=== PATIENT | male | born 1965 | race Caucasian/White ===

== ENCOUNTER 2020-09-16 16:20 | Inpatient (IN) | payer OTHER ==
[~2020-09-16] VITALS: Ht 182.9 cm; Wt 139.4 kg
[2020-09-16] MEDS ORDERED: AZITHROMYCIN 500MG/ 250ML 250 ML IV ONE (18:00)
[2020-09-16] MEDS ORDERED: DexAMETHasone SOD PHOS 10MG/1ML VIAL INJ IV ONE (18:00)
[2020-09-16 19:22] LABS: Basophils # (auto) 0 10 ^3/uL (0-0.2); Basophils % (auto) 0.1 % (0.0-2.0); Eosinophils # (auto) 0 10 ^3/uL (0-0.8); Hemoglobin 15.8 g/dL (13.5-17.5); Lymphocytes # (auto) 0.7 10 ^3/uL (0.4-5.4); Lymphocytes % (auto) 14.3 % (10.0-50.0); Mean Corpuscular Hemoglobin 33.4 pg (28.0-32.0); Mean Corpuscular Hgb Conc. 35.1 g/dL (32.0-36.0); Mean Corpuscular Volume 95.2 fL (80.0-100.0); Monocytes # (auto) 0.7 10 ^3/uL (0-1.3); Monocytes % (auto) 14.4 % (0.0-12.0); Neutrophils # (auto) 3.5 10 ^3/uL (1.6-8.6); Neutrophils % (auto) 71.2 % (37.0-80.0); Nucleated Red Blood Cells % 0.1 %; Red Blood Cells 4.73 10^6/uL (4.5-5.90); Red Cell Distribution Width 13.3 % (11.8-14.3)
[2020-09-16 19:35] LABS: INR 1.13 (0.9-1.15); Partial Thromboplastin Time 32.5 sec (23.0-31.2)
[2020-09-16 19:45] LABS: Chloride 102 mmol/L (98-107); Potassium 4.1 mmol/L (3.5-5.1); Sodium 133 mmol/L (136-145)
[2020-09-16 19:50] LABS: Alanine Aminotransferase 32 U/L (16-61); Albumin 2.9 g/dL (3.4-5.0); Alkaline Phosphatase 60 U/L (45-117); Anion Gap 9 (5-15); Aspartate Aminotransferase 62 U/L (15-37); BUN/Creatinine Ratio 17.9; Bilirubin, Total 0.8 mg/dL (0.2-1.0); Blood Urea Nitrogen 12 mg/dL (7-18); Calcium 7.9 mg/dL (8.5-10.1); Carbon Dioxide 22 mmol/L (21-32); GFR African American 159 mL/min; GFR Non-African American 131 mL/min; Glucose 135 mg/dL (74-106); Magnesium 1.9 mg/dL (1.6-2.6); Total Protein 7.4 g/dL (6.4-8.2)
[2020-09-16] MEDS ORDERED: ALBUTEROL SULF HFA 90MCG INH 200DOSE IN SCH (22:00)
[2020-09-16] MEDS: ASCORBIC ACID 500 MG TAB PO SCH (23:08)
[2020-09-16] MEDS: DexAMETHasone SOD PHOS 10MG/1ML VIAL INJ IV SCH (23:08)
[2020-09-17] MEDS ORDERED: ALBUTEROL SULF HFA 90MCG INH 200DOSE IN PRN (06:15)
[2020-09-17] MEDS: DexAMETHasone SOD PHOS 10MG/1ML VIAL INJ IV SCH ×2 (11:02→23:02)
[2020-09-17] MEDS: ASCORBIC ACID 500 MG TAB PO SCH ×2 (11:03→23:02)
[2020-09-17] MEDS: ZINC SULFATE 220mg CAP or TAB PO SCH (11:03)
[2020-09-17] MEDS: AZITHROMYCIN 250 MG TAB PO SCH (11:03)
[2020-09-17] MEDS: CHOLECALCIFEROL (VITD3) 2,000 UNIT CAP/TAB PO SCH (11:03)
[2020-09-17] MEDS: cefTRIAXone 1GM/50ML D5W 50 ML IV SCH (11:14)
[2020-09-17] MEDS: ACETAMINOPHEN 325 MG TAB PO PRN (13:52)
[2020-09-17 14:00] LABS: Urine Bacteria NONE SEEN /hpf (None Seen); Urine Blood Negative /uL (Negative); Urine Hyaline Cast FEW /lpf (0 - 2); Urine Mucus FEW (None Seen); Urine Specific Gravity 1.031 (1.001-1.035); Urine WBC <1 /hpf (0 - 3)
[2020-09-18] VITALS: BP 137/72
[2020-09-18 00:44] VITALS: BP 137/72
[2020-09-18 08:00] VITALS: BP 131/83
[2020-09-18] MEDS: ENOXAPARIN SOD 40 MG/0.4 ML SYRINGE SC SCH (10:00)
[2020-09-18] MEDS: CHOLECALCIFEROL (VITD3) 2,000 UNIT CAP/TAB PO SCH (10:00)
[2020-09-18] MEDS: DexAMETHasone SOD PHOS 10MG/1ML VIAL INJ IV SCH ×2 (10:06→21:21)
[2020-09-18] MEDS: ZINC SULFATE 220mg CAP or TAB PO SCH (10:07)
[2020-09-18] MEDS: cefTRIAXone 1GM/50ML D5W 50 ML IV SCH (10:07)
[2020-09-18] MEDS: ASCORBIC ACID 500 MG TAB PO SCH ×2 (10:08→21:22)
[2020-09-18] MEDS: AZITHROMYCIN 250 MG TAB PO SCH (10:09)
[2020-09-18 16:00] VITALS: BP 130/78
[2020-09-18] MEDS: PROMETHAZINE W/CODEINE 5 ML ORAL SYRUP PO PRN (21:22)
[2020-09-18] MEDS: ACETAMINOPHEN 325 MG TAB PO PRN (21:23)
[2020-09-19] VITALS: BP_SYST 122; BP_SYST 126; BP_DIAS 69; BP_DIAS 80
[2020-09-19 08:00] VITALS: BP 118/73
[2020-09-19] MEDS: PROMETHAZINE W/CODEINE 5 ML ORAL SYRUP PO PRN ×2 (09:54→20:43)
[2020-09-19] MEDS: DexAMETHasone SOD PHOS 10MG/1ML VIAL INJ IV SCH ×2 (10:15→20:42)
[2020-09-19] MEDS: cefTRIAXone 1GM/50ML D5W 50 ML IV SCH (10:15)
[2020-09-19] MEDS: ASCORBIC ACID 500 MG TAB PO SCH ×2 (10:16→20:43)
[2020-09-19] MEDS: ENOXAPARIN SOD 40 MG/0.4 ML SYRINGE SC SCH (10:16)
[2020-09-19] MEDS: ZINC SULFATE 220mg CAP or TAB PO SCH (10:16)
[2020-09-19] MEDS: CHOLECALCIFEROL (VITD3) 2,000 UNIT CAP/TAB PO SCH (10:16)
[2020-09-19] MEDS: AZITHROMYCIN 250 MG TAB PO SCH (10:16)
[2020-09-19 16:00] VITALS: BP 123/73
[2020-09-19] MEDS: ACETAMINOPHEN 325 MG TAB PO PRN (20:44)
[2020-09-20] VITALS: BP 122/69
[2020-09-20 08:00] VITALS: BP 142/83
[2020-09-20] MEDS: DexAMETHasone SOD PHOS 10MG/1ML VIAL INJ IV SCH ×2 (09:52→21:53)
[2020-09-20] MEDS: cefTRIAXone 1GM/50ML D5W 50 ML IV SCH (09:52)
[2020-09-20] MEDS: CHOLECALCIFEROL (VITD3) 2,000 UNIT CAP/TAB PO SCH (09:53)
[2020-09-20] MEDS: ASCORBIC ACID 500 MG TAB PO SCH ×2 (09:53→21:53)
[2020-09-20] MEDS: ZINC SULFATE 220mg CAP or TAB PO SCH (09:53)
[2020-09-20] MEDS: ENOXAPARIN SOD 40 MG/0.4 ML SYRINGE SC SCH (09:54)
[2020-09-20] MEDS: PROMETHAZINE W/CODEINE 5 ML ORAL SYRUP PO PRN ×2 (09:54→15:07)
[2020-09-20] MEDS: AZITHROMYCIN 250 MG TAB PO SCH (09:54)
[2020-09-20] MEDS ORDERED: ZOLPIDEM TARTRATE 5 MG TAB PO PRN (12:30)
[2020-09-20 16:00] VITALS: BP 162/96
[2020-09-20 23:43] VITALS: BP 137/79
[2020-09-21 08:29] VITALS: BP 134/79
[2020-09-21] MEDS: DexAMETHasone SOD PHOS 10MG/1ML VIAL INJ IV SCH (13:25)
[2020-09-21] MEDS: AZITHROMYCIN 250 MG TAB PO SCH (13:26)
[2020-09-21] MEDS: ZINC SULFATE 220mg CAP or TAB PO SCH (13:26)
[2020-09-21] MEDS: cefTRIAXone 1GM/50ML D5W 50 ML IV SCH (13:26)
[2020-09-21] MEDS: ASCORBIC ACID 500 MG TAB PO SCH ×2 (13:26→22:38)
[2020-09-21] MEDS: CHOLECALCIFEROL (VITD3) 2,000 UNIT CAP/TAB PO SCH (13:27)
[2020-09-21] MEDS: ENOXAPARIN SOD 40 MG/0.4 ML SYRINGE SC SCH (13:28)
[2020-09-21] MEDS: PROMETHAZINE W/CODEINE 5 ML ORAL SYRUP PO PRN (13:49)
[2020-09-21 16:00] VITALS: BP 132/83
[2020-09-21] MEDS: DexAMETHasone SOD PHOS 4 MG/1ML SDV INJ IV SCH (22:38)
[2020-09-22 00:21] VITALS: BP 130/77
[2020-09-22 08:00] VITALS: BP_SYST 125; BP_SYST 144; BP_DIAS 77; BP_DIAS 78
[2020-09-22] MEDS: DexAMETHasone SOD PHOS 4 MG/1ML SDV INJ IV SCH ×2 (09:25→22:10)
[2020-09-22] MEDS: ZINC SULFATE 220mg CAP or TAB PO SCH (09:26)
[2020-09-22] MEDS: cefTRIAXone 1GM/50ML D5W 50 ML IV SCH (09:26)
[2020-09-22] MEDS: ASCORBIC ACID 500 MG TAB PO SCH ×2 (09:27→22:10)
[2020-09-22] MEDS: AZITHROMYCIN 250 MG TAB PO SCH (09:27)
[2020-09-22] MEDS: CHOLECALCIFEROL (VITD3) 2,000 UNIT CAP/TAB PO SCH (09:27)
[2020-09-22] MEDS: ENOXAPARIN SOD 40 MG/0.4 ML SYRINGE SC SCH (09:27)
[2020-09-22] MEDS: PROMETHAZINE W/CODEINE 5 ML ORAL SYRUP PO PRN (09:28)
[2020-09-22] MEDS: traMADol HCL 50 MG TAB PO PRN (12:31)
[2020-09-22 16:00] VITALS: BP 139/86
[2020-09-22 23:55] VITALS: BP 133/86
[2020-09-23 08:00] VITALS: BP 126/81
[2020-09-23] MEDS: AZITHROMYCIN 250 MG TAB PO SCH (09:13)
[2020-09-23] MEDS: ZINC SULFATE 220mg CAP or TAB PO SCH (09:13)
[2020-09-23] MEDS: CHOLECALCIFEROL (VITD3) 2,000 UNIT CAP/TAB PO SCH (09:13)
[2020-09-23] MEDS: DexAMETHasone SOD PHOS 4 MG/1ML SDV INJ IV SCH ×2 (09:13→22:42)
[2020-09-23] MEDS: cefTRIAXone 1GM/50ML D5W 50 ML IV SCH (09:13)
[2020-09-23] MEDS: traMADol HCL 50 MG TAB PO PRN (09:14)
[2020-09-23] MEDS: ENOXAPARIN SOD 40 MG/0.4 ML SYRINGE SC SCH (09:14)
[2020-09-23] MEDS: ASCORBIC ACID 500 MG TAB PO SCH ×2 (09:14→22:42)
[2020-09-23] MEDS: PROMETHAZINE W/CODEINE 5 ML ORAL SYRUP PO PRN (11:50)
[2020-09-23] MEDS ORDERED: REMDESIVIR PER PHARMACY 0 ML IV SCH (13:15)
[2020-09-23 16:00] VITALS: BP 120/67
[2020-09-23 16:36] LABS: Albumin 2.6 g/dL (3.4-5.0); Calcium 8.6 mg/dL (8.5-10.1); Magnesium 2.4 mg/dL (1.6-2.6); Potassium 4.7 mmol/L (3.5-5.1)
[2020-09-23 16:40] LABS: BUN/Creatinine Ratio 31.5; Bilirubin, Total 0.7 mg/dL (0.2-1.0); Phosphorus 3.1 mg/dL (2.5-4.90); Total Protein 7.1 g/dL (6.4-8.2)
[2020-09-23 16:44] LABS: CRP High Sensitivity 0.12 mg/dL (< 0.3)
[2020-09-23] MEDS: guaiFENesin-CODEINE Liq 5 ML UD GT PRN (17:00)
[2020-09-23] MEDS ORDERED: REMDESIVIR 200 MG in NS 210ml LOADING DOSE ADULT IV ONE (18:00)
[2020-09-23] MEDS ORDERED: REMDESIVIR 100mg 100 MG in SODIUM CHL 0.9% 230 ML IV ONE (20:30)
[2020-09-23] MEDS: BUDESONIDE (INHALATION) 180 MCG IH IN SCH (21:14)
[2020-09-24] VITALS: BP 141/90
[2020-09-24 08:00] VITALS: BP 133/81
[2020-09-24] MEDS: BUDESONIDE (INHALATION) 180 MCG IH IN SCH ×2 (08:07→20:18)
[2020-09-24 08:48] LABS: Basophils # (auto) 0 10 ^3/uL (0-0.2); Basophils % (auto) 0.2 % (0.0-2.0); Eosinophils # (auto) 0 10 ^3/uL (0-0.8); Hematocrit 47.4 % (41.0-53.0); Hemoglobin 16.1 g/dL (13.5-17.5); Lymphocytes # (auto) 0.7 10 ^3/uL (0.4-5.4); Lymphocytes % (auto) 6.2 % (10.0-50.0); Mean Corpuscular Hemoglobin 32.1 pg (28.0-32.0); Mean Corpuscular Volume 94.2 fL (80.0-100.0); Monocytes # (auto) 0.9 10 ^3/uL (0-1.3); Monocytes % (auto) 7.7 % (0.0-12.0); Neutrophils # (auto) 9.6 10 ^3/uL (1.6-8.6); Neutrophils % (auto) 85.9 % (37.0-80.0); Nucleated Red Blood Cells % 0.1 %; Red Blood Cells 5.02 10^6/uL (4.5-5.90); Red Cell Distribution Width 13.1 % (11.8-14.3); White Blood Cell 11.2 10^3/uL (4.4-10.8)
[2020-09-24] MEDS: traMADol HCL 50 MG TAB PO PRN ×2 (09:59→22:45)
[2020-09-24] MEDS: cefTRIAXone 1GM/50ML D5W 50 ML IV SCH (09:59)
[2020-09-24] MEDS: DexAMETHasone SOD PHOS 4 MG/1ML SDV INJ IV SCH ×2 (09:59→22:44)
[2020-09-24] MEDS: AZITHROMYCIN 250 MG TAB PO SCH (09:59)
[2020-09-24] MEDS: CHOLECALCIFEROL (VITD3) 2,000 UNIT CAP/TAB PO SCH (10:00)
[2020-09-24] MEDS: ENOXAPARIN SOD 40 MG/0.4 ML SYRINGE SC SCH (10:00)
[2020-09-24] MEDS: ZINC SULFATE 220mg CAP or TAB PO SCH (10:00)
[2020-09-24] MEDS: ASCORBIC ACID 500 MG TAB PO SCH ×2 (10:00→22:45)
[2020-09-24] MEDS: REMDESIVIR 100mg 100 MG in SODIUM CHL 0.9% 230 ML IV SCH (14:30)
[2020-09-24 16:06] VITALS: BP 135/84
[2020-09-24 16:09] VITALS: BP 135/84
[2020-09-24] MEDS: guaiFENesin-CODEINE Liq 5 ML UD GT PRN (17:45)
[2020-09-24] MEDS: ALBUTEROL SULF HFA 90MCG INH 200DOSE IN PRN (20:18)
[2020-09-25] VITALS: BP 153/94
[2020-09-25] MEDS: ALBUTEROL SULF HFA 90MCG INH 200DOSE IN PRN ×2 (07:38→21:22)
[2020-09-25] MEDS: BUDESONIDE (INHALATION) 180 MCG IH IN SCH ×2 (07:38→21:22)
[2020-09-25 08:00] VITALS: BP 134/83
[2020-09-25] MEDS: cefTRIAXone 1GM/50ML D5W 50 ML IV SCH (10:06)
[2020-09-25] MEDS: DexAMETHasone SOD PHOS 4 MG/1ML SDV INJ IV SCH ×2 (10:06→21:51)
[2020-09-25] MEDS: AZITHROMYCIN 250 MG TAB PO SCH (10:07)
[2020-09-25] MEDS: CHOLECALCIFEROL (VITD3) 2,000 UNIT CAP/TAB PO SCH (10:07)
[2020-09-25] MEDS: ZINC SULFATE 220mg CAP or TAB PO SCH (10:07)
[2020-09-25] MEDS: ASCORBIC ACID 500 MG TAB PO SCH ×2 (10:07→21:51)
[2020-09-25] MEDS: ENOXAPARIN SOD 40 MG/0.4 ML SYRINGE SC SCH (10:07)
[2020-09-25 14:22] LABS: Albumin 2.2 g/dL (3.4-5.0); Calcium 8.2 mg/dL (8.5-10.1); Potassium 5.4 mmol/L (3.5-5.1)
[2020-09-25 14:26] LABS: BUN/Creatinine Ratio 26.1; Bilirubin, Total 0.7 mg/dL (0.2-1.0); Total Protein 6.1 g/dL (6.4-8.2)
[2020-09-25] MEDS: REMDESIVIR 100mg 100 MG in SODIUM CHL 0.9% 230 ML IV SCH (15:19)
[2020-09-25 16:00] VITALS: BP 117/88
[2020-09-25] MEDS: traMADol HCL 50 MG TAB PO PRN (22:02)
[2020-09-25 23:42] VITALS: BP 134/79
[2020-09-26 08:00] VITALS: BP 126/80
[2020-09-26 08:17] LABS: Potassium 4.9 mmol/L (3.5-5.1)
[2020-09-26 08:32] LABS: Albumin 2.1 g/dL (3.4-5.0); BUN/Creatinine Ratio 34.4; Bilirubin, Total 0.7 mg/dL (0.2-1.0); Calcium 8.3 mg/dL (8.5-10.1); Total Protein 5.8 g/dL (6.4-8.2)
[2020-09-26] MEDS: BUDESONIDE (INHALATION) 180 MCG IH IN SCH ×2 (09:22→20:04)
[2020-09-26] MEDS: ALBUTEROL SULF HFA 90MCG INH 200DOSE IN PRN ×2 (09:22→20:04)
[2020-09-26] MEDS: ZINC SULFATE 220mg CAP or TAB PO SCH (09:35)
[2020-09-26] MEDS: ASCORBIC ACID 500 MG TAB PO SCH ×2 (09:35→22:02)
[2020-09-26] MEDS: CHOLECALCIFEROL (VITD3) 2,000 UNIT CAP/TAB PO SCH (09:35)
[2020-09-26] MEDS: cefTRIAXone 1GM/50ML D5W 50 ML IV SCH (09:35)
[2020-09-26] MEDS: DexAMETHasone SOD PHOS 4 MG/1ML SDV INJ IV SCH ×2 (09:35→22:02)
[2020-09-26] MEDS: ENOXAPARIN SOD 40 MG/0.4 ML SYRINGE SC SCH (09:36)
[2020-09-26] MEDS: AZITHROMYCIN 250 MG TAB PO SCH (09:36)
[2020-09-26] MEDS: traMADol HCL 50 MG TAB PO PRN (12:16)
[2020-09-26] MEDS: guaiFENesin-CODEINE Liq 5 ML UD GT PRN (12:29)
[2020-09-26] MEDS: REMDESIVIR 100mg 100 MG in SODIUM CHL 0.9% 230 ML IV SCH (15:52)
[2020-09-26 16:03] VITALS: BP 133/90
[2020-09-27] VITALS: BP 128/77
[2020-09-27 08:00] VITALS: BP 125/71
[2020-09-27] MEDS: cefTRIAXone 1GM/50ML D5W 50 ML IV SCH (09:50)
[2020-09-27] MEDS: ENOXAPARIN SOD 40 MG/0.4 ML SYRINGE SC SCH (09:50)
[2020-09-27] MEDS: DexAMETHasone SOD PHOS 4 MG/1ML SDV INJ IV SCH ×2 (09:51→21:53)
[2020-09-27] MEDS: ZINC SULFATE 220mg CAP or TAB PO SCH (09:51)
[2020-09-27] MEDS: CHOLECALCIFEROL (VITD3) 2,000 UNIT CAP/TAB PO SCH (09:51)
[2020-09-27] MEDS: ASCORBIC ACID 500 MG TAB PO SCH ×2 (09:51→21:53)
[2020-09-27] MEDS: AZITHROMYCIN 250 MG TAB PO SCH (09:51)
[2020-09-27] MEDS: BUDESONIDE (INHALATION) 180 MCG IH IN SCH ×2 (10:40→20:04)
[2020-09-27 11:26] LABS: Albumin 2.4 g/dL (3.4-5.0); Calcium 8.5 mg/dL (8.5-10.1); Potassium 4.8 mmol/L (3.5-5.1)
[2020-09-27 11:32] LABS: BUN/Creatinine Ratio 32.9; Bilirubin, Total 0.6 mg/dL (0.2-1.0); Total Protein 6.3 g/dL (6.4-8.2)
[2020-09-27] MEDS ORDERED: REMDESIVIR 100mg 100 MG in SODIUM CHL 0.9% 230 ML IV ONE (15:00)
[2020-09-27 16:00] VITALS: BP 132/78
[2020-09-27] MEDS: ALBUTEROL SULF HFA 90MCG INH 200DOSE IN PRN (20:04)
[2020-09-28] VITALS: BP 123/69
[2020-09-28] MEDS: BUDESONIDE (INHALATION) 180 MCG IH IN SCH ×2 (07:15→19:21)
[2020-09-28] MEDS: ALBUTEROL SULF HFA 90MCG INH 200DOSE IN PRN ×2 (07:15→19:21)
[2020-09-28 08:00] VITALS: BP 119/68
[2020-09-28] MEDS: cefTRIAXone 1GM/50ML D5W 50 ML IV SCH (10:12)
[2020-09-28] MEDS: DexAMETHasone SOD PHOS 4 MG/1ML SDV INJ IV SCH ×2 (10:12→21:48)
[2020-09-28] MEDS: ASCORBIC ACID 500 MG TAB PO SCH ×2 (10:12→21:48)
[2020-09-28] MEDS: CHOLECALCIFEROL (VITD3) 2,000 UNIT CAP/TAB PO SCH (10:12)
[2020-09-28] MEDS: ENOXAPARIN SOD 40 MG/0.4 ML SYRINGE SC SCH (10:12)
[2020-09-28] MEDS: AZITHROMYCIN 250 MG TAB PO SCH (10:12)
[2020-09-28] MEDS: ZINC SULFATE 220mg CAP or TAB PO SCH (10:12)
[2020-09-28 16:00] VITALS: BP 121/82
[2020-09-29] VITALS: BP 146/99
[2020-09-29 08:00] VITALS: BP 124/89
[2020-09-29] MEDS: CHOLECALCIFEROL (VITD3) 2,000 UNIT CAP/TAB PO SCH (10:00)
[2020-09-29] MEDS: DexAMETHasone SOD PHOS 4 MG/1ML SDV INJ IV SCH (10:00)
[2020-09-29] MEDS: ZINC SULFATE 220mg CAP or TAB PO SCH (10:00)
[2020-09-29] MEDS: ASCORBIC ACID 500 MG TAB PO SCH (10:00)
[2020-09-29] MEDS: ENOXAPARIN SOD 40 MG/0.4 ML SYRINGE SC SCH (10:00)
[2020-09-29] MEDS: cefTRIAXone 1GM/50ML D5W 50 ML IV SCH (10:00)
[2020-09-29] MEDS: AZITHROMYCIN 250 MG TAB PO SCH (10:00)
== END 2020-09-29 12:20 | disposition left against medical advice (07) | DRG 177 ==
LOC: EEVIPCON 16:20 → ER 16:20 → OVERFLOW 21:24 → WEST WING 09-17 23:41
PROVIDERS: ADMIT Internal Medicine; ATTEND Internal Medicine
PROC: XW033E5 Introduction of Remdesivir Anti-infective into Peripheral Vein, Percutaneous Approach, New Technology Group 5 (ICD-10-PCS; principal; 2020-09-23)
DX: U07.1 COVID-19 (principal); J96.01 Acute respiratory failure with hypoxia; J12.82 Pneumonia due to coronavirus disease 2019; J90 Pleural effusion, not elsewhere classified; E87.1 Hypo-osmolality and hyponatremia; Z68.41 Body mass index [BMI] 40.0-44.9, adult; E66.01 Morbid (severe) obesity due to excess calories; I10 Essential (primary) hypertension; Z53.29 Procedure and treatment not carried out because of patient's decision for other reasons; E11.9 Type 2 diabetes mellitus without complications; Z82.49 Family history of ischemic heart disease and other diseases of the circulatory system; Z87.891 Personal history of nicotine dependence
CPT/HCPCS: 36415; 71045; 80053; 81001; 82728; 83605; 83615; 83735; 84100; 84484; 85025; 85379; 85610; 85730; 86141; 87040; 87070; 87205; 87426; 93970; 94640; 96365; 96366; 96375; G0378; J0696; J1100